=== PATIENT | female | born 1970 | race African-American/Black ===

== ENCOUNTER 2017-02-25 18:35 | Emergency (ER) | payer BC ==
[~2017-02-25] VITALS: Ht 154.9 cm; Wt 91.0 kg
[~2017-02-25 18:35] MED LIST: FLUO-124 PO; HYDR50CA5 PO
[2017-02-25] MEDS ORDERED: IMIT50 PO (18:47)
[2017-02-25] MEDS ORDERED: TRAZ-129 PO (18:47)
[2017-02-25 19:41] VITALS: BP 158/10
== END 2017-02-25 21:01 | disposition home or self-care (01) ==
LOC: ER 20:41
DX: H60.91 Unspecified otitis externa, right ear (principal); F41.9 Anxiety disorder, unspecified; F32.9 Major depressive disorder, single episode, unspecified; G43.909 Migraine, unspecified, not intractable, without status migrainosus
CPT/HCPCS: 81025; 99283

== ENCOUNTER 2018-08-24 07:05 | Emergency (ER) | payer BC ==
[~2018-08-24] VITALS: Ht 154.9 cm; Wt 91.0 kg
[~2018-08-24 07:05] MED LIST changes: +IMIT50 PO; +TRAZ-212 PO
[2018-08-24] MEDS ORDERED: IBUPROFEN 600MG TABLET PO ONE (09:00)
[2018-08-24 10:15] VITALS: BP 146/89
== END 2018-08-24 10:18 | disposition home or self-care (01) ==
LOC: ER 07:05
DX: M54.5 Low back pain (principal); M54.2 Cervicalgia; G43.909 Migraine, unspecified, not intractable, without status migrainosus; F41.9 Anxiety disorder, unspecified; F32.9 Major depressive disorder, single episode, unspecified; R03.0 Elevated blood-pressure reading, without diagnosis of hypertension; Z98.84 Bariatric surgery status; W10.8XXA Fall (on) (from) other stairs and steps, initial encounter; Y93.89 Activity, other specified; Y92.018 Other place in single-family (private) house as the place of occurrence of the external cause
CPT/HCPCS: 72100; 81025; 99284

== ENCOUNTER 2021-01-31 12:04 | Emergency (ER) | payer BC, MEDICAID ==
[~2021-01-31] VITALS: Ht 167.6 cm; Wt 86.0 kg
[~2021-01-31 12:04] MED LIST changes: -FLUO-124 PO; +FLUO20CA39 PO; -TRAZ-212 PO; +TRAZ-251 PO
[2021-01-31 12:44] LABS: BASOPHILS % 0.6 % (0.0-2.0); EOSINOPHILS % 1.1 % (0.0-5.0); HEMATOCRIT. 41.5 % (36.0-48.0); HEMOGLOBIN. 14.2 g/dL (12.0-16.0); LYMPHOCYTES % 47.2 % (20.0-50.0); MEAN PLATELET VOLUME 8.6 fl (7.4-10.4); NEUTROPHILS % 47.1 % (40.0-76.0); PLATELET 256 x1000/uL (130-400); RED BLOOD CELL COUNT 4.32 mill/uL (4.2-5.4); RED CELL DISTRIBUTION WIDTH 13.9 % (11.6-14.6)
[2021-01-31 12:53] LABS: CHLORIDE 111 mEq/L (98-107)
[2021-01-31 12:57] LABS: ETHANOL BLOOD 231 mg/dL
[2021-01-31 13:08] LABS: CLARITY URINE CLOUDY (CLEAR); COLOR URINE YELLOW (YELLOW); KETONES URINE NEGATIVE (NEGATIVE); LEUKOCYTE ESTERASE URINE 1+ (NEGATIVE); NITRITE URINE NEGATIVE (NEGATIVE); OCCULT BLOOD URINE NEGATIVE (NEGATIVE); PROTEIN URINE NEGATIVE (NEGATIVE); SPECIFIC GRAVITY URINE 1.014 (1.005-1.030); UROBILINOGEN URINE 0.2 E.U./dL (0.2-1.0)
[2021-01-31 13:08] LABS: HCG SCREEN NEGATIVE
[2021-01-31 13:17] LABS: *AMPHETAMINES SCREEN URINE NEGATIVE (NEGATIVE); *BARBITURATES SCREEN URINE NEGATIVE (NEGATIVE); *BENZODIAZEPINES SCREEN URINE NEGATIVE (NEGATIVE); *COCAINE SCREEN URINE NEGATIVE (NEGATIVE); CANNABINOID URINE SCREEN NEGATIVE (NEGATIVE); METHADONE URINE SCREEN NEGATIVE (NEGATIVE); OPIATES URINE SCREEN NEGATIVE (NEGATIVE); PHENCYCLIDINE URINE SCREEN NEGATIVE (NEGATIVE)
[2021-01-31] MEDS ORDERED: LORAZEPAM 1MG TABLET PO ONE (13:30)
[2021-02-01] MEDS ORDERED: LORAZEPAM 1MG TABLET PO PRN (00:15)
[2021-02-01] MEDS ORDERED: FLUOXETINE HCL 10 MG CAPSULE PO SCH (09:00)
[2021-02-01] MEDS ORDERED: TRAZODONE HCL 50MG TABLET PO SCH (21:00)
[2021-02-01 23:00] VITALS: BP 132/68
== END 2021-02-01 23:11 ==
LOC: ER 12:16
DX: R45.851 Suicidal ideations (principal); F32.9 Major depressive disorder, single episode, unspecified; F41.9 Anxiety disorder, unspecified; G43.909 Migraine, unspecified, not intractable, without status migrainosus; Z98.84 Bariatric surgery status; Z20.822 Contact with and (suspected) exposure to COVID-19
CPT/HCPCS: 36415; 80053; 80305; 80307; 80320; 80329; 81003; 81025; 84703; 85025; 87426; 93005; 99285; G0480

== ENCOUNTER 2022-08-27 13:36 | Emergency (ER) | payer SELFPAY ==
[~2022-08-27] VITALS: Ht 170.2 cm; Wt 68.0 kg
[2022-08-27] MEDS ORDERED: LORAZEPAM 2MG/ML CPJ IM STA (14:03)
[2022-08-27] MEDS ORDERED: HALOPERIDOL LACTATE 5MG/ML VIAL IM STA (14:03)
[2022-08-27 15:03] LABS: BASOPHILS % 0.7 % (0.0-2.0); EOSINOPHILS % 1.6 % (0.0-5.0); HEMATOCRIT. 46.1 % (36.0-48.0); HEMOGLOBIN. 15.4 g/dL (12.0-16.0); LYMPHOCYTES % 47.7 % (20.0-50.0); MEAN CORPUSCULAR HEMOGLOBIN 34.2 pg (28.0-32.0); MEAN CORPUSCULAR VOLUME 102.8 fL (81.0-99.0); MONOCYTES % 7.4 % (2.0-8.0); NEUTROPHILS % 42.6 % (40.0-76.0); PLATELET 217 x1000/uL (130-400); RED BLOOD CELL COUNT 4.49 mill/uL (4.2-5.4); RED CELL DISTRIBUTION WIDTH 12.9 % (11.6-14.6)
[2022-08-27 15:09] LABS: CHLORIDE 111 mEq/L (98-107)
[2022-08-27 15:45] LABS: ETHANOL BLOOD 374 mg/dL
[2022-08-27] MEDS ORDERED: SODIUM CHLORIDE 0.9% 1,000 ML IV ONE ×2 (16:00)
[2022-08-27 16:15] LABS: CLARITY URINE CLEAR (CLEAR); COLOR URINE YELLOW (YELLOW); KETONES URINE NEGATIVE (NEGATIVE); LEUKOCYTE ESTERASE URINE NEGATIVE (NEGATIVE); NITRITE URINE NEGATIVE (NEGATIVE); OCCULT BLOOD URINE NEGATIVE (NEGATIVE); PROTEIN URINE NEGATIVE (NEGATIVE); SPECIFIC GRAVITY URINE 1.006 (1.005-1.030); UROBILINOGEN URINE 0.2 E.U./dL (0.2-1.0)
[2022-08-27 16:35] LABS: *AMPHETAMINES SCREEN URINE NEGATIVE (NEGATIVE); *BARBITURATES SCREEN URINE NEGATIVE (NEGATIVE); *BENZODIAZEPINES SCREEN URINE NEGATIVE (NEGATIVE); *COCAINE SCREEN URINE NEGATIVE (NEGATIVE); CANNABINOID URINE SCREEN NEGATIVE (NEGATIVE); METHADONE URINE SCREEN NEGATIVE (NEGATIVE); OPIATES URINE SCREEN NEGATIVE (NEGATIVE); PHENCYCLIDINE URINE SCREEN NEGATIVE (NEGATIVE)
[2022-08-27 21:13] VITALS: BP 121/79
== END 2022-08-27 21:25 | disposition home or self-care (01) ==
LOC: ER 13:36
DX: F10.129 Alcohol abuse with intoxication, unspecified (principal); Y90.8 Blood alcohol level of 240 mg/100 ml or more
CPT/HCPCS: 36415; 80053; 80305; 80320; 81003; 82962; 85025; 96360; 96361; 96372; 99285; J1630; J2060; J7030; G0480

== ENCOUNTER 2023-02-26 10:53 | Emergency (ER) | payer SELFPAY ==
[~2023-02-26] VITALS: Ht 157.5 cm; Wt 59.0 kg
[2023-02-26 12:05] LABS: BASOPHILS % 0.9 % (0.0-2.0); EOSINOPHILS % 1.6 % (0.0-5.0); HEMATOCRIT. 36.8 % (36.0-48.0); HEMOGLOBIN. 12.8 g/dL (12.0-16.0); MEAN CORPUSCULAR HEMOGLOBIN 35.3 pg (28.0-32.0); MEAN CORPUSCULAR VOLUME 101.2 fL (81.0-99.0); MEAN PLATELET VOLUME 8.6 fl (7.4-10.4); MONOCYTES % 6.3 % (2.0-8.0); NEUTROPHILS % 52.2 % (40.0-76.0); PLATELET 242 x1000/uL (130-400); RED BLOOD CELL COUNT 3.64 mill/uL (4.2-5.4); RED CELL DISTRIBUTION WIDTH 14.7 % (11.6-14.6)
[2023-02-26 12:17] LABS: CHLORIDE 108 mEq/L (98-107)
[2023-02-26 12:42] LABS: ETHANOL BLOOD 281 mg/dL
[2023-02-26 13:37] VITALS: BP 163/101
[2023-02-26 14:17] LABS: CLARITY URINE CLEAR (CLEAR); COLOR URINE YELLOW (YELLOW); KETONES URINE NEGATIVE (NEGATIVE); LEUKOCYTE ESTERASE URINE TRACE (NEGATIVE); NITRITE URINE NEGATIVE (NEGATIVE); OCCULT BLOOD URINE NEGATIVE (NEGATIVE); PROTEIN URINE NEGATIVE (NEGATIVE); SPECIFIC GRAVITY URINE 1.015 (1.005-1.030); UROBILINOGEN URINE 0.2 E.U./dL (0.2-1.0)
[2023-02-26 15:13] LABS: *AMPHETAMINES SCREEN URINE NEGATIVE (NEGATIVE); *BARBITURATES SCREEN URINE NEGATIVE (NEGATIVE); *BENZODIAZEPINES SCREEN URINE NEGATIVE (NEGATIVE); *COCAINE SCREEN URINE NEGATIVE (NEGATIVE); CANNABINOID URINE SCREEN NEGATIVE (NEGATIVE); METHADONE URINE SCREEN NEGATIVE (NEGATIVE); OPIATES URINE SCREEN NEGATIVE (NEGATIVE); PHENCYCLIDINE URINE SCREEN NEGATIVE (NEGATIVE)
== END 2023-02-26 15:48 | disposition left against medical advice (07) ==
LOC: ER 11:03
DX: R46.2 Strange and inexplicable behavior (principal); F10.129 Alcohol abuse with intoxication, unspecified; F41.9 Anxiety disorder, unspecified; F32.A Depression, unspecified; G43.909 Migraine, unspecified, not intractable, without status migrainosus; Z20.822 Contact with and (suspected) exposure to COVID-19; Z79.899 Other long term (current) drug therapy; Y90.8 Blood alcohol level of 240 mg/100 ml or more
CPT/HCPCS: 36415; 80053; 80305; 80320; 81003; 85025; 87426; 99283; C9803; G0480

== ENCOUNTER 2025-08-16 11:32 | Emergency (ER) | payer OTHER ==
[~2025-08-16] VITALS: Ht 154.9 cm; Wt 68.0 kg
[~2025-08-16 11:32] MED LIST changes: +FLUO-413 PO; -FLUO20CA39 PO
[2025-08-16 11:35] VITALS: O2SAT 99
[2025-08-16 12:33] LABS: BASOPHILS % 1.2 % (0.0-2.0); EOSINOPHILS % 0.4 % (0.0-5.0); HEMATOCRIT. 43.3 % (36.0-48.0); HEMOGLOBIN. 14.5 g/dL (12.0-16.0); LYMPHOCYTES % 51.3 % (20.0-50.0); MEAN PLATELET VOLUME 8.1 fl (7.4-10.4); MONOCYTES % 3.8 % (2.0-8.0); NEUTROPHILS % 43.3 % (40.0-76.0); PLATELET 304 x1000/uL (130-400); RED BLOOD CELL COUNT 4.69 mill/uL (4.2-5.4); RED CELL DISTRIBUTION WIDTH 15.7 % (11.6-14.6)
[2025-08-16 12:49] LABS: CREATININE 0.7 mg/dL (0.6-1.0); UREA NITROGEN BLOOD < 5 mg/dL (9-23)
[2025-08-16 13:07] LABS: HCG SCREEN INDETERMINATE
[2025-08-16 13:15] LABS: CLARITY URINE CLEAR (CLEAR); COLOR URINE YELLOW (YELLOW); GLUCOSE URINE NEGATIVE (NEGATIVE); KETONES URINE TRACE (NEGATIVE); LEUKOCYTE ESTERASE URINE NEGATIVE (NEGATIVE); NITRITE URINE NEGATIVE (NEGATIVE); OCCULT BLOOD URINE NEGATIVE (NEGATIVE); PH URINE 5.0 (4.5-8.0); PROTEIN URINE NEGATIVE (NEGATIVE); SPECIFIC GRAVITY URINE 1.013 (1.005-1.030); UROBILINOGEN URINE 0.2 E.U./dL (0.2-1.0)
[2025-08-16 13:40] LABS: *AMPHETAMINES SCREEN URINE NEGATIVE (NEGATIVE); *BARBITURATES SCREEN URINE NEGATIVE (NEGATIVE); *BENZODIAZEPINES SCREEN URINE NEGATIVE (NEGATIVE); *COCAINE SCREEN URINE NEGATIVE (NEGATIVE)
[2025-08-16 13:41] LABS: CANNABINOID URINE SCREEN NEGATIVE (NEGATIVE); ECSTASY MDMA SCREEN URINE NEGATIVE (NEGATIVE); METHADONE URINE SCREEN NEGATIVE (NEGATIVE); OPIATES URINE SCREEN NEGATIVE (NEGATIVE); PHENCYCLIDINE URINE SCREEN NEGATIVE (NEGATIVE)
[2025-08-16] MEDS: LORAZEPAM 1MG TABLET PO ONE ×2 (14:14→18:20)
[2025-08-16] MEDS: CHLORDIAZEPOXIDE 25MG CAPSULE PO ONE (15:47)
[2025-08-16] MEDS ORDERED: LORAZEPAM 1MG TABLET PO NR (19:45)
[2025-08-16] MEDS: SODIUM CHLORIDE 0.9% 1,000 ML IV NR (19:53)
[2025-08-16] MEDS: LORAZEPAM 2MG/ML UD SYRINGE IV NR (20:21)
[2025-08-16] MEDS: SODIUM CHLORIDE 0.9% 1,000 ML IV ONE (21:43)
[2025-08-17 05:50] VITALS: BP 135/70; PULSE 99; RESP 20; TEMP 36.9; O2SAT 98
== END 2025-08-17 06:07 ==
LOC: ER 11:32
DX: F23 Brief psychotic disorder (principal); T51.0X1A Toxic effect of ethanol, accidental (unintentional), initial encounter; I10 Essential (primary) hypertension; F41.9 Anxiety disorder, unspecified; R10.22 Pelvic and perineal pain left side; F32.A Depression, unspecified; Z98.84 Bariatric surgery status; Z79.899 Other long term (current) drug therapy; Z20.822 Contact with and (suspected) exposure to COVID-19; Y92.89 Other specified places as the place of occurrence of the external cause
CPT/HCPCS: 80305; 80048; 81003; 80307; 80329; 80320 ×2; 84703; 84702; 85025; 36415 ×2; 93005; 96374; 99285; 87426; J2060; J7030; G0480